=== PATIENT | male | born 1990 | race Caucasian/White ===

== ENCOUNTER 2019-10-18 17:43 | Emergency (ER) | payer BC ==
[~2019-10-18] VITALS: Ht 167.6 cm; Wt 98.2 kg
[~2019-10-18 17:43] MED LIST: ALBUTEROL SULFAT3 M3; NORCO 325 MG-51 TAB PO; PRINIVIL20 MG PO; PULMICORT90 MCG/Act
[2019-10-18 18:40] LABS: BASO % 0.2 % (0.0-2.0); EOS % 0.4 % (0-4.0); GRAN % 52.8 % (42.2-75.2); HEMATOCRIT 46.9 % (42.0-52.0); LYMPH # 3.5 (1.2-3.4); LYMPH % 36.7 % (20.0-51.0); MEAN CELL VOLUME 92 fl (80.0-100.0); MEAN CORPUSCULAR HEMOGLOBIN 31 pg (27.0-31.0); MEAN CORPUSCULAR HGB CONC 34 g/dl (33.0-37.0); MEAN PLATELET VOLUME 10.7 fl (7.4-10.4); MONO # 0.9 (0.1-0.6); MONO % 9.7 % (1.7-9.3); PLATELET COUNT 234 K/mm3 (130-400); RED BLOOD COUNT 5.11 M/mm3 (4.20-5.60); REDCELL DISTRIBUTION WIDTH-CV 12.5 % (11.5-14.5)
[2019-10-18 18:47] LABS: ALANINE AMINOTRANSFERASE 41 U/L (21-72); ALBUMIN 5.1 gm/dL (3.5-5.0); ALKALINE PHOSPHATASE 65 U/L (50-136); ANION GAP 14 mmol/L (7-16); AST,SGOT 39 U/L (15-37); BILIRUBIN,TOTAL 0.4 mg/dL (0.0-1.0); BLOOD UREA NITROGEN 14 mg/dL (9-20); CALCIUM 9.9 mg/dL (8.4-10.2); CARBON DIOXIDE 23 mmol/L (22-30); CHLORIDE 104 mmol/L (98-107); CREATININE, serum 1.05 (0.66-1.25); GLUCOSE 110 mg/dL (74-106); LIPASE 192 U/L (23-300); POTASSIUM 3.5 mmol/L (3.4-5.0); SODIUM 141 mmol/L (137-145); TOTAL PROTEIN 8.8 gm/dL (6.4-8.2)
[2019-10-18 18:58] LABS: C-REACTIVE PROTEIN < 0.5 mg/dL (0.0-0.9); TROPONIN-I < 0.012 ng/mL (0.000-0.035)
[2019-10-18] MEDS ORDERED: PROTONIX 40MG T40 MG PO (20:13)
[2019-10-18 21:41] VITALS: BP 117/86; PULSE 102; TEMP 98.7
== END 2019-10-18 21:42 | disposition home or self-care (01) ==
LOC: COL.ER 17:43
PROVIDERS: Emergency Medicine
DX: R07.89 Other chest pain (principal); K21.9 Gastro-esophageal reflux disease without esophagitis; I10 Essential (primary) hypertension; J45.909 Unspecified asthma, uncomplicated

== ENCOUNTER → 2019-10-28 | Outpatient (CLI) | payer BC ==
[~2019-10-28] MED LIST changes: +PROTONIX 40MG T40 MG PO
== END ==
LOC: COL.VAS 09:07
DX: Q24.9 Congenital malformation of heart, unspecified (principal); I34.0 Nonrheumatic mitral (valve) insufficiency; I51.7 Cardiomegaly; Z87.74 Personal history of (corrected) congenital malformations of heart and circulatory system

== ENCOUNTER 2022-12-07 21:16 | Emergency (ER) | payer BC ==
[~2022-12-07] VITALS: Ht 172.7 cm; Wt 113.6 kg
[2022-12-07 21:16] VITALS: BP 000/00; PULSE 00
== END 2022-12-08 01:25 | disposition expired ==
LOC: COL.ER 21:16
DX: I46.9 Cardiac arrest, cause unspecified (principal); Z98.890 Other specified postprocedural states
CPT/HCPCS: J0171; J0282; J7030; J7060